=== PATIENT | female | born 1990 | race Hispanic/Latino ===

== ENCOUNTER 2017-06-27 13:04 | Observation (INO) | payer OTHER ==
[~2017-06-27] VITALS: Ht 157.5 cm; Wt 86.2 kg
[2017-06-27 13:41] LABS: BILIRUBIN,URINE NEGATIVE (NEGATIVE); KETONES,URINE NEGATIVE (NEGATIVE); LEUKOCYTE ESTERASE ,URINE NEGATIVE (NEGATIVE); NITRITE,URINE NEGATIVE (NEGATIVE); PROTEIN,URINE DIPSTICK NEGATIVE (NEGATIVE); URINE UROBILINOGEN 0.2 mg/dL (0.2 - 1)
[2017-06-27 13:43] LABS: PREGNANCY TEST, URINE NEGATIVE (NEGATIVE)
[2017-06-27 13:46] LABS: CLARITY,URINE CLEAR (CLEAR); COLOR,URINE YELLOW (YELLOW)
[2017-06-27] MEDS ORDERED: ONDANSETRON HCL INJ 2 MG/ML VIAL IV STA (13:59)
[2017-06-27] MEDS ORDERED: MORPHINE SULFATE 4 MG/ML SYR IV STA (13:59)
[2017-06-27] MEDS ORDERED: SODIUM CHLORIDE 0.9% 1000ML 1,000 ML IV STA (13:59)
[2017-06-27 14:04] LABS: EPITHELIAL CELLS,URINE RARE /LPF
[2017-06-27 14:15] LABS: BASOPHILS # (AUTO) 0.1 (0.0-0.1); BASOPHILS % 0.4 % (0.0-1.0); EOSINOPHILS # (AUTO) 0.3 (0.0-0.4); EOSINOPHILS % 1.9 % (0.0-6.0); HEMATOCRIT 39.1 % (34.2-44.1); HEMOGLOBIN 13.3 g/dL (12.0-16.0); LYMPHOCYTES # (AUTO) 2.6 (1.0-3.2); MEAN CORPUSCULAR HEMOGLOBIN 29.7 pg (28-32); MEAN CORPUSCULAR VOLUME 87.3 fL (81-99); MONOCYTES # (AUTO) 0.8 (0.2-0.8); MONOCYTES % 6.2 % (4.4-11.3); NEUTROPHILS # (AUTO) 9.8 (2.1-6.9); NEUTROPHILS % 72.2 % (38.7-80.0); PLATELET COUNT 288 x10e3/uL (140-360); RED BLOOD COUNT 4.48 x10e6/uL (3.6-5.1); RED CELL DISTRIBUTION WIDTH 12.6 % (11.7-14.4)
[2017-06-27 14:30] LABS: ALANINE AMINOTRANSFERASE 9 IU/L (0-55); ALBUMIN/GLOBULIN RATIO 1.1 (0.8-2.0); ALKALINE PHOSPHATASE 70 IU/L (40-150); ANION GAP 10.6 mmol/L (8-16); BLOOD UREA NITROGEN 10 mg/dL (7-26); BUN/CREATININE RATIO 14 (6-25); CALCIUM 9.3 mg/dL (8.4-10.2); CARBON DIOXIDE 30 mmol/L (22-29); CHLORIDE 101 mmol/L (98-107); CREATININE, SERUM 0.69 mg/dL (0.57-1.11); EST GLOMERULAR FILTRATION RATE > 60 ML/MIN (60-); GLUCOSE 95 mg/dL (74-118); LIPASE 29 U/L (8-78); POTASSIUM 3.6 mmol/L (3.5-5.1); SODIUM 138 mmol/L (136-145)
--- NOTE | 2017-06-27 14:50 | Diagnostic Imaging Report ---
PROCEDURE: CT ABDOMEN AND PELVIS WITHOUT CONTRAST TECHNIQUE: The abdomen and pelvis were scanned utilizing a multidetector helical scanner from the diaphragm to the lesser trochanter. No IV contrast was administered as per physician request. Coronal and sagittal multiplanar reformations were obtained. COMPARISON: None. INDICATIONS: RLQ PAIN FINDINGS: ABSENCE OF INTRAVENOUS CONTRAST DECREASES SENSITIVITY FOR DETECTION OF FOCAL LESIONS AND VASCULAR PATHOLOGY. LOWER THORAX: Normal. HEPATOBILIARY: No focal hepatic lesions. No biliary ductal dilatation. SPLEEN: No splenomegaly. PANCREAS: No focal masses or ductal dilatation. ADRENALS: No adrenal nodules. KIDNEYS/URETERS: No hydronephrosis, stones, or solid mass lesions. PELVIC ORGANS/BLADDER: Small simple cyst is present in the right ovary. Normal uterus. Normal left ovary. PERITONEUM / RETROPERITONEUM: No free air or fluid. LYMPH NODES: No lymphadenopathy. VESSELS: Unremarkable. GI TRACT: No distention or wall thickening. Normal appendix. Moderate amount of retained feces limits intraluminal evaluation of the colon. BONES AND SOFT TISSUES: Unremarkable. IMPRESSION: No acute abnormality of the abdomen and pelvis. Dictated by: Nathan Ramirez M.D. on 06/27/2017 at 14:50 Electronically approved by: Nathan Ramirez M.D. on 06/27/2017 at 14:50
[2017-06-27] MEDS ORDERED: MORPHINE SULFATE 2 MG/ML SYR ONE (15:13)
--- NOTE | 2017-06-27 16:42 | Diagnostic Imaging Report ---
PROCEDURE:TRANSVAGINAL ULTRASOUND COMPARISON:[facility], US, US PELVIC DOPPLER LTD, 06/27/2017, 15:25. [facility], CT, CT ABDOMEN/PELVIS WO, 06/27/2017, 14:07. INDICATIONS:r/o ovarian torsion, rlq pain; LMP 06/08/17 TECHNIQUE: Grayscale transverse and sagittal transvaginal images were obtained of the pelvis. Transvaginal imaging was medically necessary to evaluate the ovaries and adnexa FINDINGS: UTERUS: The uterus measures 5.0 x 6.0 x 9.0 cm. Myometrial echotexture is normal. No mass. The cervix contains multiple nabothian cysts. ENDOMETRIUM: Measures 12 mm in thickness and is homogenously hyperechoic. No fluid in the endometrial canal. RIGHT OVARY: Measures 2.4 x 2.9 x 4.2 cm. It contains a cyst with low level internal echoes measuring 22 x 21 x 23 mm. LEFT OVARY: Measures 2.0 x 3.4 cm. Multiple follicles are present. There is small amount of free fluid within the pelvis. No adnexal masses. The blood flow to the ovaries is normal color and spectral Doppler interrogation. CONCLUSION: 1. Normal uterus and endometrium. 2. Hemorrhagic cyst in the right ovary. Recommend followup ultrasound in 6-8 weeks to document interval change/resolution. 3. Normal left ovary. No torsion. Dictated by: Afsaneh Sorenson M.D. on 06/27/2017 at 16:43 Electronically approved by: Afsaneh Sorenson M.D. on 06/27/2017 at 16:43
--- NOTE | 2017-06-27 16:44 | Diagnostic Imaging Report ---
PROCEDURE:PELVIC DOPPLER US Please see Acc# [id number] for report. Dictated by: Afsaneh Sorenson M.D. on 06/27/2017 at 16:45 Electronically approved by: Afsaneh Sorenson M.D. on 06/27/2017 at 16:45
[2017-06-27] MEDS ORDERED: ONDANSETRON HCL INJ 2 MG/ML VIAL IV PRN (17:15)
[2017-06-27] MEDS ORDERED: MORPHINE SULFATE 2 MG/ML SYR IV PRN (17:15)
--- OUTSIDE RECORDS SUMMARY | 2017-06-27 17:30 | XMS REPORT ---
Author Author [facility] Address Unknown Phone Unavailable Care Team Providers Care Software Developer Intern Name Role Phone DEVON REMY Unavailable Unavailable Problems This patient has no known problems. Allergies, Adverse Reactions, Alerts This patient has no known allergies or adverse reactions. Medications This patient has no known medications. Results Test Description Test Time Test Comments Text Results Atomic Results Result Comments CT ABDOMEN/PELVIS WO [place] [address] Patient Name: BERNABE ADAME MR #: [id number] : 1990 Age/Sex: 26/F Req # : [id number] Adm Physician: Ordered by: DEVON REMY MD Report #: [id number] Location: ER Room/Bed: Procedure: [id number] CT/CT ABDOMEN/PELVIS WO Exam Date: 06/27/17 Exam Time: 1406 REPORT STATUS: Signed PROCEDURE: CT ABDOMEN AND PELVIS WITHOUT CONTRAST TECHNIQUE: The abdomen and pelvis were scanned utilizing a multidetector helical scanner from the diaphragm to the lesser trochanter. No IV contrast was administered as per physician request. Coronal and sagittal multiplanar reformations were obtained. COMPARISON : None. INDICATIONS: RLQ PAIN FINDINGS: ABSENCE OF INTRAVENOUS CONTRAST DECREASES SENSITIVITY FOR DETECTION OF FOCAL LESIONS AND VASCULAR PATHOLOGY. LOWER THORAX: Normal. HEPATOBILIARY: No focal hepatic lesions. No biliary ductal dilatation. SPLEEN: No splenomegaly. PANCREAS: No focal masses or ductal dilatation. ADRENALS: No adrenal nodules. KIDNEYS/URETERS: No hydronephrosis, stones, or solid mass lesions. PELVIC ORGANS/BLADDER: Small simple cyst is present in the right ovary. Normal uterus. Normal left ovary. PERITONEUM / RETROPERITONEUM: No free air or fluid. LYMPH NODES: No lymphadenopathy. VESSELS: Unremarkable. GI TRACT: No distention or wall thickening. Normal appendix. Moderate amount of retained feces limits intraluminal evaluation of the colon. BONES AND SOFT TISSUES: Unremarkable. IMPRESSION: No acute abnormality of the abdomen and pelvis. Dictated by: Adarsh Villaseñor M.D. on 06/27/2017 at 14: 50 Electronically approved by: Adarsh Villaseñor M.D. on 06/27/2017 at 14:50 Dictated By: ADARSH VILLASEÑOR MD 145 Transcribed By: ISMAEL on 06/27/17 1450 COPY TO : DEVON REMY MD US TRANSVAGINAL [place] [address] Patient Name: BERNABE ADAME MR #: [id number] : 1990 Age/Sex: 26/F Req #: [id number] Adm Physician: Ordered by: DEE CHUN SALESPERSON FURNITURE Report #: [id number] Location: ER Room/Bed: Procedure: [id number] US/US TRANSVAGINAL Exam Date: 06/27/17 Exam Time: 1525 REPORT STATUS: Signed PROCEDURE: TRANSVAGINAL ULTRASOUND COMPARISON: [facility], US, US PELVIC DOPPLER LTD, 06/27/2017, 15:25. Patients [facility], CT, CT ABDOMEN/PELVIS WO, 06/27/2017, 14:07. INDICATIONS: r/o ovarian torsion, rlq pain; LMP 06/08/17 TECHNIQUE: Grayscale transverse and sagittal transvaginal images were obtained of the pelvis. Transvaginal imaging was medically necessary to evaluate the ovaries and adnexa FINDINGS: UTERUS: The uterus measures 5.0 x 6.0 x 9.0 cm. Myometrial echotexture is normal. No mass. The cervix contains multiple nabothian cysts. ENDOMETRIUM: Measures 12 mm in thickness and is homogenously hyperechoic. No fluid in the endometrial canal. RIGHT OVARY: Measures 2.4 x 2.9 x 4.2 cm. It contains a cyst with low level internal echoes measuring 22 x 21 x 23 mm. LEFT OVARY: Measures 2.0 x 3.4 cm. Multiple follicles are present. There is small amount of free fluid within the pelvis. No adnexal masses. The blood flow to the ovaries is normal color and spectral Doppler interrogation. CONCLUSION : 1. Normal uterus and endometrium. 2. Hemorrhagic cyst in the right ovary. Recommend followup ultrasound in 6-8 weeks to document interval change /resolution. 3. Normal left ovary. No torsion. Dictated by: Sandy Sorenson M.D. on 06/27/2017 at 16:43 Electronically approved by: Sandy Sorenson M.D. on 06/27/2017 at 16:43 Dictated By: SANDY SORENSON MD 42 Transcribed By: ISMAEL on 06/27/171642 COPY TO: DEE CHUN NP PELVIC DOPPLER [place] [address] Patient Name: BERNABE ADAME MR #: [id number] : 1990 Age/Sex: 26/F Req # : [id number] Adm Physician: Ordered by: DEE CHUN NP Report #: [id number] Location: ER Room/Bed: Procedure: [id number] US/US PELVIC DOPPLER LTD Exam Date: 06/27/17 Exam Time: 1525 REPORT STATUS: Signed PROCEDURE: PELVIC DOPPLER US Please see Acc# [id number] for report. Dictated by: Sandy Sorenson M.D. on 06/27/2017 at 16:45 Electronically approved by: Sandy Sorenson M.D. on 06/27/2017 at 16:45 Dictated By: SANDY SORENSON MD 1645 Transcribed By: ISMAEL on 06/27/17 1645 COPY TO: DEE CHUN NP
[2017-06-27] MEDS: SODIUM CHLORIDE 0.9% 1000ML 1,000 ML IV SCH (18:28)
[2017-06-27 18:43] VITALS: BP 112/62
[2017-06-27 20:00] VITALS: BP 116/62
[2017-06-27] MEDS ORDERED: PIPER-TAZ 3.375 GM 50 ML IV SCH (22:00)
[2017-06-27] MEDS: METRONIDAZOLE 500MG/NS 100ML 100 ML IV SCH (23:07)
[2017-06-28] VITALS: BP 103/53
[2017-06-28] MEDS: SODIUM CHLORIDE 0.9% 1000ML 1,000 ML IV SCH ×2 (01:01→09:15)
[2017-06-28 04:00] VITALS: BP 103/58
[2017-06-28] MEDS: METRONIDAZOLE 500MG/NS 100ML 100 ML IV SCH ×2 (05:23→14:37)
[2017-06-28 06:40] LABS: BASOPHILS # (AUTO) 0.1 (0.0-0.1); BASOPHILS % 0.4 % (0.0-1.0); EOSINOPHILS # (AUTO) 0.3 (0.0-0.4); EOSINOPHILS % 2.2 % (0.0-6.0); HEMATOCRIT 34.7 % (34.2-44.1); HEMOGLOBIN 11.7 g/dL (12.0-16.0); LYMPHOCYTES # (AUTO) 2.4 (1.0-3.2); MEAN CORPUSCULAR HEMOGLOBIN 29.4 pg (28-32); MEAN CORPUSCULAR HGB CONC 33.7 g/dL (31-35); MEAN CORPUSCULAR VOLUME 87.2 fL (81-99); MONOCYTES % 8.2 % (4.4-11.3); NEUTROPHILS # (AUTO) 8.3 (2.1-6.9); NEUTROPHILS % 68.8 % (38.7-80.0); PLATELET COUNT 244 x10e3/uL (140-360); RED BLOOD COUNT 3.98 x10e6/uL (3.6-5.1); RED CELL DISTRIBUTION WIDTH 12.6 % (11.7-14.4)
[2017-06-28 07:12] LABS: ANION GAP 9.3 mmol/L (8-16); BLOOD UREA NITROGEN 12 mg/dL (7-26); BUN/CREATININE RATIO 17 (6-25); CALCIUM 8.6 mg/dL (8.4-10.2); CARBON DIOXIDE 26 mmol/L (22-29); CHLORIDE 109 mmol/L (98-107); EST GLOMERULAR FILTRATION RATE > 60 ML/MIN (60-); GLUCOSE 98 mg/dL (74-118); POTASSIUM 4.3 mmol/L (3.5-5.1); SODIUM 140 mmol/L (136-145)
[2017-06-28] MEDS ORDERED: SYNTHROID112 MCG PO (07:17)
[2017-06-28] MEDS ORDERED: LEVOTHYROXINE SODIUM 112 MCG TAB PO SCH (08:15)
[2017-06-28 08:29] VITALS: BP 105/54
[2017-06-28 12:35] VITALS: BP 109/53
[2017-06-28] MEDS ORDERED: FAMOTIDINE 20 MG TAB PO SCH (15:45)
[2017-06-28] MEDS ORDERED: METOCLOPRAMIDE HCL 10 MG TAB PO SCH (15:45)
[2017-06-28] MEDS ORDERED: PEPCID20 MG PO (16:08)
[2017-06-28] MEDS ORDERED: REGLAN10 MG PO (16:10)
[2017-06-28 16:27] VITALS: BP 121/65
--- NOTE | 2017-06-28 17:31 | History and Physical ---
PRIMARY CARE PROVIDER: Dr. Librado Bartlett. HISTORY OF PRESENT ILLNESS: Patient is a 26-year-old female admitted through the emergency department with complaints of 3 days' worth of right lower quadrant abdominal pain which she states also included lower back. She states that the most severe point it was 10 out of 10 on a 0 to 10 scale. She denies any costovertebral angle tenderness. She states she is also vomiting in the mornings and after eating. She states she does have some history of this, of vomiting after eating and vomiting in the mornings. She denies any diarrhea, states at times she has difficulty with bowel movements consistent with constipation with hard stools. She states she had a Pap smear last year, and they mentioned that she had a problem with a cyst on her ovary. Her next appointment with her lawyer real estate is in July. PAST MEDICAL HISTORY: Hypothyroidism, gestational diabetes mellitus, Gloria's. PAST SURGICAL HISTORY: None. SOCIAL HISTORY: She is , and Malagasy is her primary language. She lives with her and 2 children. 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 Temple preference is Yaz[employer]. She denies any history of smoking. She drinks alcohol socially. Denies any illicit drug use. Functional history is normal, no difficulties with ambulation or use of assistive devices. FAMILY HISTORY: Patient's father had a kidney stone. Patient's sister is . She had a heart murmur, scoliosis and cleft lip and palate. Patient's mother has diabetes and high blood pressure. ALLERGIES: SHELLFISH, PENICILLIN, IODINE AND IODINE-CONTAINING PRODUCTS. HOME MEDICATIONS: Please see electronic medical record. REVIEW OF SYSTEMS GENERAL: Patient denies fatigue. She has mild malaise. No complaints of fever or chills. HEENT: Denies any visual complaints. She has a headache which she scores 4 on a scale of 0 to 10. Denies dizziness. CARDIOVASCULAR: Denies chest pain or palpitations. PULMONARY: Denies shortness of breath, cough or phlegm. GASTROINTESTINAL: As per history of present illness. Today the patient states she has had no nausea or vomiting. She has good appetite and has been eating and drinking well. Denies diarrhea. Last bowel movement was today. GENITOURINARY: Denies dysuria, frequency, urgency. MUSCULOSKELETAL: Denies joint pain. ENDOCRINE: Negative for diabetes mellitus. HEMATOLOGY: No history of bleeding or bruising. INFECTIOUS DISEASE: No known history of HIV or immunodeficiency. NEUROLOGIC: Denies any focal weakness, numbness, tingling or seizures. PHYSICAL EXAMINATION VITAL SIGNS: Temperature 98.0, heart rate 84, blood pressure 105/54 with a MAP of 71, respirations 18, oxygen saturation 97%. Weight 190 pounds. GENERAL: The patient is lying supine in bed. No acute distress. HEENT: Pupils equal, round, reactive to light. Extraocular eye movements are intact. Oropharynx is clear. NECK: Supple. No lymphadenopathy, thyromegaly, JVD. No carotid bruit. CARDIOVASCULAR: Regular rate and rhythm without murmur or extra heart sounds. LUNGS: Air entry bilaterally with clear lung sounds. ABDOMEN: Bowel sounds are positive. Obese, soft. She has mild tenderness to gentle palpation right lower quadrant. No rebound tenderness. EXTREMITIES: No pitting edema. No clubbing, cyanosis or marked swelling. No signs or symptoms of DVT. INTEGUMENTARY: Warm, dry. NEUROLOGIC: GCS 15. Cranial nerves 2-12 are intact. Alert and oriented x4. Nonfocal. LABORATORY DATA: Labs on admission include WBCs 13.63, hemoglobin 13.3, hematocrit 39.1, platelets 288. Sodium 138, potassium 3.6, chloride 101, CO2 30, BUN 10, creatinine 0.69, GFR greater than 60, glucose 95, calcium 9.3. Total bilirubin less than 0.3, AST 13, ALT 9, alkaline phosphatase 70. Total protein 7.5, albumin 4, globulin 3.5. Lipase 29. Urinalysis collected yesterday was negative. Today the WBCs 12.05, sodium 140, potassium 4.3, chloride 109, CO2 26, BUN 12, creatinine 0.7, GFR greater than 60, glucose 98, calcium 8.6. Transvaginal ultrasound completed yesterday shows a hemorrhagic cyst in the right ovary. Radiologist recommends followup ultrasound in 6 to 8 weeks to document interval change or resolution. Pelvis ultrasound was completed, unable to view report. CT of the abdomen and pelvis without contrast was negative, no acute abnormality. ASSESSMENT AND PLAN 1. Gastroesophageal reflux disease. Patient has been on IV Flagyl. IV Zosyn had been started; however, the patient has an ALLERGY TO PENICILLIN and it has been discontinued. Case was discussed with Dr. Carlos. Will send patient home today on Reglan 10 mg p.o. t.i.d. a.c. and Pepcid 20 mg p.o. b.i.d. Patient to follow up with PCP in 1 to 2 weeks. 2. Right lower quadrant abdominal pain with hemorrhagic right ovarian cyst. Patient is to follow up with her lawyer real estate. 3. Nausea and vomiting. Encouraged p.o. fluids. Will send patient home on Pepcid and Reglan. 4. Chronic constipation. Will provide script for Colace. 5. Hypothyroidism. Continue levothyroxine 112 mcg daily. 6. Body mass index 34.74. Low glycemic index diet. 7. Prophylaxis. Pepcid. Dictated by: Rafi Chavez NP Job#: [id number]
--- NOTE | 2017-06-28 21:08 | Discharge Summary ---
Please see history and physical for history of present illness. Patient admitted due to 3 days' duration of right lower quadrant abdominal pain as well as vomiting in the mornings and after eating and mild constipation. No consulting services. ADMITTING DIAGNOSES: Include 1. Gastroesophageal reflux disease. 2. Right lower quadrant abdominal pain with hemorrhagic right ovarian cyst. 3. Nausea and vomiting. 4. Chronic constipation. 5. Hypothyroidism. 6. Body mass index of 34.74. DISCHARGE DIAGNOSES: Include 1. Gastroesophageal reflux disease. 2. Right lower quadrant abdominal pain with hemorrhagic right ovarian cyst. 3. Nausea and vomiting. 4. Chronic constipation. 5. Hypothyroidism. 6. Body mass index of 34.74. The patient was given Flagyl and Zosyn after admission. However, Zosyn was discontinued as she has ALLERGY TO PENICILLIN. Urinalysis was negative. Transvaginal ultrasound showed hemorrhagic cyst in the right ovary, and radiologist recommended ultrasound followup 6 to 8 weeks to document interval change or resolution. Abdomen and pelvis CT was negative. White blood cell count 13 on admission and 12 upon discharge. Electrolytes were normal. Renal function normal. On labs, urinalysis was negative. Today, the day of discharge, patient will be discharged home on Pepcid and Reglan for gastroesophageal reflux disease. Patient is to follow up with her PCP in 1 to 2 weeks, follow up with Gynecology in July. Activity as tolerated. Regular diet. Dictated by: Rafi Chavez NP EMANUEL THURMAN MD Job#: [id number] EV
== END 2017-06-28 17:15 | disposition home or self-care (01) ==
LOC: ER 13:04 → EDBEDREQ 17:25 → ERHOLD 17:29 → IMCU 17:30
PROVIDERS: ADMIT Internal Medicine; ATTEND Internal Medicine
DX: K21.9 Gastro-esophageal reflux disease without esophagitis (principal); R10.31 Right lower quadrant pain; N83.201 Unspecified ovarian cyst, right side; E03.9 Hypothyroidism, unspecified; Z88.0 Allergy status to penicillin; Z91.013 Allergy to seafood; R11.2 Nausea with vomiting, unspecified; K59.00 Constipation, unspecified
CPT/HCPCS: 36415 ×2; 74176; 76830; 80048; 80053; 81001; 81025; 83690; 85025 ×2; 93976; 99284; G0378 ×2; J2405; J2543; J7030 ×2; J2270